=== PATIENT | female | born 1955 | race Caucasian/White ===

== ENCOUNTER 2018-02-27 15:10 | Outpatient (CLI) | payer BC | END 2018-02-27 15:11 | disposition home or self-care (01) | LOC: BICRAD 15:10 | PROVIDERS: ATTEND Family Medicine | DX: S62.604A Fracture of unspecified phalanx of right ring finger, initial encounter for closed fracture (principal) ==

== ENCOUNTER 2018-05-31 12:21 | Outpatient (CLI) | payer BC | END 2018-05-31 12:22 | disposition home or self-care (01) | LOC: BICULT 12:21 | PROVIDERS: ATTEND Otolaryngology Plastic Surgery within the Head & Neck | DX: E04.1 Nontoxic single thyroid nodule (principal); E04.2 Nontoxic multinodular goiter | CPT/HCPCS: 76536 ==

== ENCOUNTER 2019-10-10 09:34 | Outpatient (CLI) | payer BC ==
--- NOTE | 2019-10-10 11:07 | ULT ---
ULTRASOUND RETROPERITONEUM COMPLETE: (RENAL) DOPPLER DUPLEX: DATE: 10/10/2019 HISTORY: 64-year-old female with chronic renal failure TECHNIQUE: Grayscale images of bilateral kidneys and urinary bladder. Color flow and spectral analysis of select blood vessels associated with bilateral kidneys. FINDINGS: Cursory images of urinary bladder demonstrate normal, thin matthews. Prevoid urinary bladder volume is 3 5 mL. Post void bladder volume is approximately 1.5 mL. Right kidney measures 9.5 x 4.5 x 5 cm. Left kidney measures 10.5 x 4.5 x 4.5 cm. There is thinning of the renal cortex bilaterally. No hydronephrosis. No moderate sized or large renal cystic or solid lesion. Highest peak systolic velocities: Abdominal aorta: 85 cm/s. Right renal artery: 70 cm/s. Left renal artery: 95 cm/s. Right renal artery/aorta ratio: 0.8 Left renal artery/aorta ratio: 1.2 Resistive index: Right arcuate: 0.64 Left arcuate: 0.61 IMPRESSION: 1. No hydronephrosis. 2. Minimal postvoid residual; nearly complete micturition. 3. No Doppler abnormality identified
== END 2019-10-10 09:35 | disposition home or self-care (01) ==
LOC: ULT 09:34
PROVIDERS: ATTEND Internal Medicine Nephrology
DX: N19 Unspecified kidney failure (principal); R39.198 Other difficulties with micturition
CPT/HCPCS: 76770; 93975